=== PATIENT | female | born 2000 | race Caucasian/White ===

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

== ENCOUNTER → 2021-06-21 | Outpatient (CLI) | payer OTHER ==
--- NOTE | 2021-06-23 14:25 | USB ---
Reason for exam: clinical finding. History: Family history of breast cancer in paternal grandmother. Physical Findings: A clinical breast exam by your physician is recommended on an annual basis and results should be correlated with mammographic findings. US Breast LT Left complete breast ultrasound includes all four quadrants, the retroareolar region and axilla. Finding demonstrates a 1.1 x 0.5 x 0.9cm oval, hypoechoic, circumscribed lesion at 1 o'clock with posterior through transmission, most suggestive of a fibroadenoma. ASSESSMENT: Suspicious, BI-RAD 4 RECOMMENDATION: Ultrasound core biopsy of the left breast. Dr. Ochoa's office notified of recommendation and requested preference for order/surgeon referral. Left message with the patient to schedule. PRELIMINARY REPORT CALLED AND FAXED TO DR. OCHOA ON 06/23/21.
== END | disposition home or self-care (01) ==
LOC: RADUSWWP 08:11
PROVIDERS: ATTEND Family Medicine
DX: N63.20 Unspecified lump in the left breast, unspecified quadrant (principal); Z80.3 Family history of malignant neoplasm of breast

== ENCOUNTER → 2021-07-07 | Day surgery (SDC) | payer OTHER ==
[2021-07-07 13:33] VITALS: TEMP 98.1
[2021-07-07 14:30] VITALS: BP 109/66; PULSE 76; RESP 14
--- NOTE | 2021-07-07 15:26 | USB ---
EXAMINATION TYPE: US biopsy breast VAD LT DATE OF EXAM: 07/07/2021 CLINICAL HISTORY: N63.20 LUMP IN LT BREAST. TECHNIQUE: Ultrasound guided vaccuum assisted core biopsy of left breast. COMPARISON: NONE FINDINGS: The ultrasound guided core biopsy procedure was explained to the patient. The risks, benefits, alternatives were discussed. An informed consent was then obtained. Timeout was performed. The patient was placed in supine positioning for imaging and for the procedure. The overlying skin was prepped with betadine and sterilely draped in usual sterile fashion. Lidocaine 1% was used as anesthetic into the skin and deeper breast tissue up to area of concern in the breast. A small skin lew was made with surgical scalpel. Attempts to advance the mammotome needle 2 lesion were unsuccessful. This was converted to the [employer] vacuum-assisted biopsy device and 3 core samples were obtained. Third core sample appeared minimal. Clip was placed at the biopsy site. Under ultrasound guidance, a 12-gauge vacuum assisted biopsy device was used to obtain 3 core samples. A biopsy clip was left in lesion. Ribbon clip was placed. Good hemostasis was obtained with direct pressure. Discharge instructions were discussed with the patient. The patient will follow up with the referring physician for results. Postprocedure mammogram: Due to the patient's age and residual hypodensity by ultrasound, mammogram was deferred at this time. The patient tolerated the procedure well without any immediate complication. The patient was discharged to home in stable condition. IMPRESSION: 1. Successful ultrasound guided biopsy left breast. Recommendations: 1. Recommendations are pending pathology results. Pathology Results: Benign LEFT BREAST, 1:00, ULTRASOUND GUIDED CORE BIOPSY: Fibroadenoma and fibrocystic changes. Recommendation Surgical consultation of the left breast. If symptomatic and excision is being considered. [facility]
== END ==
LOC: RADUSWWP 13:12
PROVIDERS: ATTEND Family Medicine
DX: D24.2 Benign neoplasm of left breast (principal); N60.12 Diffuse cystic mastopathy of left breast
CPT/HCPCS: 88305; 19083; A4648; J2001

== ENCOUNTER 2021-08-09 22:09 | Emergency (ER) | payer OTHER ==
[2021-08-09 22:26] LABS: Basophils % (A) 0 %; Eosinophils # (A) 0.6 k/uL (0-0.7); Eosinophils % (A) 7 %; HCT 40.8 % (34.0-46.0); HGB 13.6 gm/dL (11.4-16.0); Lymphocytes # (A) 1.4 k/uL (1.0-4.8); Lymphocytes % (A) 15 %; MCH 31.4 pg (25.0-35.0); MCHC 33.4 g/dL (31.0-37.0); Mean Platelet Volume 7.3; Monocytes # (A) 0.3 k/uL (0-1.0); Monocytes % (A) 3 %; Neutrophils # (A) 7.2 k/uL (1.3-7.7); Neutrophils % (A) 74 %; Platelet Count 262 k/uL (150-450); RBC 4.34 m/uL (3.80-5.40); RDW 12.5 % (11.5-15.5); WBC 9.8 k/uL (4.0-11.0)
[2021-08-09 22:27] VITALS: RESP 18; TEMP 98.5
[2021-08-09 22:36] LABS: ALT 18 U/L (4-34); AST 32 U/L (14-36); African American GFR (CKD) >90 (>60 ml/min/1.73 sqM); Alcohol <10 mg/dL; Alkaline Phosphatase 36 U/L (38-126); Anion Gap 7 mmol/L; Blood Urea Nitrogen 13 mg/dL (7-17); Calcium 8.8 mg/dL (8.4-10.2); Carbon Dioxide 21 mmol/L (22-30); Chloride 109 mmol/L (98-107); Glucose 101 mg/dL (74-99); Non-African American GFR(CKD) >90 (>60 ml/min/1.73 sqM); Potassium 3.9 mmol/L (3.5-5.1); Sodium 137 mmol/L (137-145); Total Bilirubin 1.1 mg/dL (0.2-1.3); Total Protein 6.8 g/dL (6.3-8.2)
--- NOTE | 2021-08-09 22:37 | XR ---
EXAMINATION TYPE: XR shoulder complete LT DATE OF EXAM: 08/09/2021 COMPARISON: NONE HISTORY: Pain TECHNIQUE: 2 view FINDINGS: I see no fracture nor dislocation. Glenohumeral joint is intact. Scapula appears intact. IMPRESSION: No fracture seen.
--- NOTE | 2021-08-09 22:38 | XR ---
EXAMINATION TYPE: XR knee limited RT DATE OF EXAM: 08/09/2021 COMPARISON: NONE HISTORY: Pain TECHNIQUE: 2 view FINDINGS: I see no fracture nor dislocation. Joint spaces are normal. No sign of joint effusion IMPRESSION: Negative right knee exam
--- NOTE | 2021-08-09 22:39 | XR ---
EXAMINATION TYPE: XR chest 1V portable DATE OF EXAM: 08/09/2021 COMPARISON: NONE HISTORY: Pain TECHNIQUE: Single view FINDINGS: Heart and mediastinum are normal. Lungs are clear. Diaphragm is normal. There is no sign of pleural effusion or pneumothorax. IMPRESSION: Normal chest. There is slight malalignment of the left side AC joint that could relate to minimal ligamentous tear.
--- NOTE | 2021-08-09 22:40 | XR ---
EXAMINATION TYPE: XR pelvis AP view DATE OF EXAM: 08/09/2021 COMPARISON: NONE HISTORY: Pain TECHNIQUE: Single view FINDINGS: Pelvic ring is intact. Proximal femurs and hip joints are intact. Sacroiliac joints are int act. There is IUD noted. IMPRESSION: Normal pelvis
[2021-08-09 22:43] LABS: Partial Thromboplastin Time 21.7 sec (22.0-30.0); Prothrombin Time 10.7 sec (9.0-12.0)
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
[2021-08-10 01:16] VITALS: BP 117/68; PULSE 78
== END 2021-08-10 01:16 | disposition home or self-care (01) ==
LOC: EC 22:09
DX: S49.91XA Unspecified injury of right shoulder and upper arm, initial encounter (principal); J45.909 Unspecified asthma, uncomplicated; F41.9 Anxiety disorder, unspecified; F17.200 Nicotine dependence, unspecified, uncomplicated; Z79.51 Long term (current) use of inhaled steroids; Z79.899 Other long term (current) drug therapy; V86.56XA Driver of dirt bike or motor/cross bike injured in nontraffic accident, initial encounter; Y92.410 Unspecified street and highway as the place of occurrence of the external cause
CPT/HCPCS: 36415; 70450; 71045; 72125; 72170; 80053; 80320; 83605; 84484; 85025; 85610; 85730; 86850; 86900; 86901; 93005; 99284

== ENCOUNTER 2023-09-14 07:55 | Day surgery (SDC) | payer BC, OTHER ==
[2023-09-14] MEDS: SODIUM CHLORIDE 0.9% 1,000 ML IV SCH (08:24)
[2023-09-14] MEDS: IV FLUID CONTINUATION 1,000 ML IV ONE (08:24)
[2023-09-14 08:27] VITALS: RESP 16; TEMP 98.7
[2023-09-14 09:40] VITALS: BP 105/59; PULSE 70
--- NOTE | 2023-09-14 18:10 | P.EPPROC ---
- EP Procedure Note Electrophysiology Procedure Note: Diagnosis Recurrent syncope Twelve-lead EKG shows sinus rhythm right bundle branch block pattern short IN interval no delta waves normal QT interval Tilt table test per protocol Baseline blood pressure 110/58 mmHg baseline heart rate 52 beats a minute Patient was tilted upright in angle of 70 degrees per protocol while she did complain of dizziness and lightheadedness there is no significant change in heart rate or blood pressure. She stated she had a feeling of falling backwards but at that time her heart rate and blood pressure was completely normal and unchanged Impression sinus mechanism with short IN interval right bundle branch block pattern Normal heart rate and blood pressure response to upright tilting
== END 2023-09-14 09:54 | disposition home or self-care (01) ==
LOC: CATHEP 07:55
PROVIDERS: ATTEND Internal Medicine Clinical Cardiac Electrophysiology
DX: R55 Syncope and collapse (principal); I45.10 Unspecified right bundle-branch block; J45.909 Unspecified asthma, uncomplicated; F90.9 Attention-deficit hyperactivity disorder, unspecified type; Z79.899 Other long term (current) drug therapy; Z79.51 Long term (current) use of inhaled steroids
CPT/HCPCS: 81025; 93660